=== PATIENT | female | born 1970 | race Caucasian/White ===

== ENCOUNTER 2021-09-23 18:02 | Emergency (ER) | payer SELFPAY ==
[~2021-09-23] VITALS: Ht 157.5 cm; Wt 50.8 kg
--- NOTE | 2021-09-23 18:02 | NUR ---
[facility] BLS TO ER BED 11
[2021-09-23 18:08] VITALS: BP 105/78
--- NOTE | 2021-09-23 18:18 | NUR ---
KEL MURPHY AT PT BEDSIDE FOR FURTHER EVALUATION
[2021-09-23] MEDS ORDERED: SULF-59 PO (18:33)
[2021-09-23] MEDS ORDERED: PYR100 PO (18:33)
[2021-09-23] MEDS ORDERED: ACET-10509 PO (18:33)
--- NOTE | 2021-09-23 18:35 | NUR ---
KEL MURPHY AT PT BEDSIDE.
[2021-09-23 18:55] VITALS: BP 105/78
--- NOTE | 2021-09-23 18:56 | NUR ---
Patient discharged with v/s stable. Written and verbal after care instructions given and explained. Patient alert, oriented and verbalized understanding of instructions. Ambulatory with steady gait. All questions addressed prior to discharge. ID band removed. Patient advised to follow up with PMD. Rx of TYLENOL, PYRIDIUM, BACTRIM given. Patient educated on indication of medication including possible reaction and side effects. Opportunity to ask questions provided and answered.
== END 2021-09-23 18:55 | disposition home or self-care (01) ==
LOC: MED 18:02
DX: N39.0 Urinary tract infection, site not specified (principal); Z79.899 Other long term (current) drug therapy
CPT/HCPCS: 81002; 81025; 99283